=== PATIENT | female | born 1985 | race Caucasian/White ===

== ENCOUNTER 2016-11-22 02:01 | Emergency (ER) | payer OTHER ==
[~2016-11-22] VITALS: Ht 175.2 cm; Wt 72.6 kg
[~2016-11-22 02:01] MED LIST: CIPRO500 MG PO; EC NAPROSYN500 MG PO; HYDROCODONE BIT1 T11 PO; MOBIC15 MG PO; MOTRIN600 MG PO; NAPROSYN500 MG PO; NEOMYCIN AND PO10 ML OP; NORFLEX100 MG PO; PARAFON FORTE500 MG PO; PAROXETINE HCL40 MG PO; PAXIL20 MG PO; PAXIL40 MG PO; PHENERGAN W/DM120 ML PO; PHENERGAN25 M3 PO; PREDNICOT20 MG PO; ULTRAM50 MG PO; [UNRECOGNIZED DRUG - OTHER] PO
[2016-11-22] MEDS ORDERED: IMITREX PO (03:25)
[2016-11-22] MEDS ORDERED: ZOFRAN ODT4 MG SL (03:25)
== END 2016-11-22 03:53 | disposition home or self-care (01) ==
LOC: ED 02:01
DX: G43.909 Migraine, unspecified, not intractable, without status migrainosus (principal); F17.200 Nicotine dependence, unspecified, uncomplicated

== ENCOUNTER 2017-01-11 16:30 | Emergency (ER) | payer OTHER ==
[~2017-01-11] VITALS: Ht 175.2 cm; Wt 72.6 kg
[~2017-01-11 16:30] MED LIST changes: +IMITREX PO; +ZOFRAN ODT4 MG SL
== END 2017-01-11 18:24 | disposition home or self-care (01) ==
LOC: ED 16:30
DX: G43.909 Migraine, unspecified, not intractable, without status migrainosus (principal); Z90.710 Acquired absence of both cervix and uterus

== ENCOUNTER 2018-06-12 09:05 | Emergency (ER) | payer OTHER ==
[~2018-06-12] VITALS: Wt 68.0 kg
[2018-06-12] MEDS ORDERED: Motrin,Rufen800 MG PO (10:39)
== END 2018-06-12 11:23 | disposition home or self-care (01) ==
LOC: ED 09:05
DX: S16.1XXA Strain of muscle, fascia and tendon at neck level, initial encounter (principal); G43.909 Migraine, unspecified, not intractable, without status migrainosus; V49.9XXA Car occupant (driver) (passenger) injured in unspecified traffic accident, initial encounter; Y93.89 Activity, other specified; Y92.89 Other specified places as the place of occurrence of the external cause; Y99.8 Other external cause status